=== PATIENT | female | born 1940 | race Caucasian/White ===

== ENCOUNTER → 2016-02-21 14:15 | Outpatient (CLI) | payer MEDICARE, BC ==
[2016-01-03 13:19] VITALS: BMI 33.5
[~2016-02-21 14:15] MED LIST: ASPIRIN EC81 M1 PO; BETAPACE 120 M120 MG PO; CALCIUM 500 + D1 TAB PO; CARAFATE1 G PO; CULTURELLE1 CAP PO; CYCLOBENZAPRINE10 MG PO; CYMBALTA30 MG PO; DETROL2 MG PO; FUROSEMIDE20 MG; K-DUR20 MEQ PO; KLONOPIN1 MG PO; LASIX20 MG PO; LISINOPRIL10 MG PO; LISINOPRIL5 MG PO; MAG-OX 400 MG400 MG PO; MEDROL DOSE PACK4 MG PO; PRAVASTATIN SOD10 MG PO; PROTONIX40 MG PO; REQUIP0.25 MG PO; ROPINIROLE HCL2 MG PO; TYLENOL W/CODEI1 TAB PO; UNISOM SLEEP AI25 MG PO; VITAMIN B-1000 MCG/M; ZINC30 MG PO; ZYLOPRIM100 MG PO
[2016-02-24 03:09] LABS: OVA + PARASITE EXAM Final report (())
== END | disposition home or self-care (01) ==
LOC: D.LAB 02-17 10:45
PROVIDERS: Internal Medicine Gastroenterology
DX: R19.7 Diarrhea, unspecified (principal)

== ENCOUNTER → 2017-04-01 12:33 | Outpatient (CLI) | payer MEDICARE, BC ==
[2016-01-03 13:19] VITALS: BMI 33.5
[2017-04-01 13:00] LABS: BASOPHILS 0.3 % (0-2); EOSINOPHILS 3.8 % (0-7); HEMATOCRIT 32.4 % (36.0-48.0); HEMOGLOBIN 10.6 g/dL (12-16); LYMPHOCYTES 12.8 % (15-50); MCH 28.5 pg (26.0-34.0); MCHC 32.7 g/dL (31.0-37.0); MCV 87.1 fL (80.0-100.0); MEAN PLATELET VOLUME 9.4 fL (7.4-10.4); NEUTROPHILS 66.1 % (40-80); PLATELET COUNT 224 10x3/uL (130-400); RBC 3.72 10x6/uL (4.00-5.40); RDW 13.7 % (11.5-14.5); WBC 3.1 10x3/uL (4.8-10.8)
[2017-04-01 13:08] LABS: CALCIUM 8.6 mg/dL (8.5-10.1); CARBON DIOXIDE 29.4 mmol/L (21.0-32.0); CREATININE - SERUM 0.8 mg/dL (0.6-1.3); POTASSIUM - SERUM 4.4 mmol/L (3.5-5.1)
== END | disposition home or self-care (01) ==
LOC: D.LABREF 12:33
PROVIDERS: Family Medicine
DX: E87.1 Hypo-osmolality and hyponatremia (principal); R50.9 Fever, unspecified; R51 Headache

== ENCOUNTER → 2017-04-15 11:39 | Outpatient (CLI) | payer MEDICARE, BC ==
[2016-01-03 13:19] VITALS: BMI 33.5
[2017-04-15 12:01] LABS: ANION GAP 10.9 mmol/L (8-16); CALCIUM 8.7 mg/dL (8.5-10.1); CARBON DIOXIDE 28.8 mmol/L (21.0-32.0); CREATININE - SERUM 0.9 mg/dL (0.6-1.3); POTASSIUM - SERUM 4.7 mmol/L (3.5-5.1)
== END | disposition home or self-care (01) ==
LOC: D.LABREF 11:39
PROVIDERS: Family Medicine
DX: E87.1 Hypo-osmolality and hyponatremia (principal)

== ENCOUNTER → 2017-04-29 11:02 | Outpatient (CLI) | payer MEDICARE, BC ==
[2016-01-03 13:19] VITALS: BMI 33.5
[2017-04-29 13:27] LABS: CALCIUM 9.4 mg/dL (8.5-10.1); CARBON DIOXIDE 28.9 mmol/L (21.0-32.0); CREATININE - SERUM 0.9 mg/dL (0.6-1.3); POTASSIUM - SERUM 4.9 mmol/L (3.5-5.1)
== END | disposition home or self-care (01) ==
LOC: D.LABREF 11:02
PROVIDERS: Family Medicine
DX: E87.1 Hypo-osmolality and hyponatremia (principal); E87.6 Hypokalemia

== ENCOUNTER → 2017-05-13 14:24 | Outpatient (CLI) | payer MEDICARE, BC ==
[2016-01-03 13:19] VITALS: BMI 33.5
[2017-05-13 16:15] LABS: ANION GAP 9.7 mmol/L (8-16); CALCIUM 8.5 mg/dL (8.5-10.1); CARBON DIOXIDE 29.9 mmol/L (21.0-32.0); POTASSIUM - SERUM 4.6 mmol/L (3.5-5.1)
== END | disposition home or self-care (01) ==
LOC: D.LABREF 14:24
PROVIDERS: Family Medicine
DX: E87.1 Hypo-osmolality and hyponatremia (principal)

== ENCOUNTER → 2017-05-16 10:49 | Outpatient (CLI) | payer MEDICARE, BC ==
[2016-01-03 13:19] VITALS: BMI 33.5
== END | disposition home or self-care (01) ==
LOC: D.LABREF 10:49
DX: R53.1 Weakness (principal); Z86.2 Personal history of diseases of the blood and blood-forming organs and certain disorders involving the immune mechanism; R53.83 Other fatigue

== ENCOUNTER → 2017-05-28 13:28 | Outpatient (CLI) | payer MEDICARE, BC ==
[2016-01-03 13:19] VITALS: BMI 33.5
[2017-05-28 14:17] LABS: ANION GAP 13.5 mmol/L (8-16); CALCIUM 8.7 mg/dL (8.5-10.1); CREATININE - SERUM 0.9 mg/dL (0.6-1.3); POTASSIUM - SERUM 4.5 mmol/L (3.5-5.1)
== END | disposition home or self-care (01) ==
LOC: D.LABREF 13:28
PROVIDERS: Family Medicine
DX: E87.1 Hypo-osmolality and hyponatremia (principal)

== ENCOUNTER → 2017-06-11 16:10 | Outpatient (CLI) | payer MEDICARE, BC ==
[2016-01-03 13:19] VITALS: BMI 33.5
[2017-06-11 16:45] LABS: ANION GAP 13.5 mmol/L (8-16); CALCIUM 8.9 mg/dL (8.5-10.1); CARBON DIOXIDE 25.9 mmol/L (21.0-32.0); CREATININE - SERUM 0.8 mg/dL (0.6-1.3); POTASSIUM - SERUM 4.4 mmol/L (3.5-5.1)
== END | disposition home or self-care (01) ==
LOC: D.LABREF 16:10
PROVIDERS: Family Medicine
DX: E87.1 Hypo-osmolality and hyponatremia (principal)

== ENCOUNTER → 2017-06-25 11:51 | Outpatient (CLI) | payer MEDICARE, BC ==
[2016-01-03 13:19] VITALS: BMI 33.5
[2017-06-25 12:32] LABS: ANION GAP 17.3 mmol/L (8-16); CALCIUM 9.4 mg/dL (8.5-10.1); CARBON DIOXIDE 23.2 mmol/L (21.0-32.0); CREATININE - SERUM 0.9 mg/dL (0.6-1.3); POTASSIUM - SERUM 4.5 mmol/L (3.5-5.1)
== END | disposition home or self-care (01) ==
LOC: D.LABREF 11:51
PROVIDERS: Emergency Medicine
DX: E78.1 Pure hyperglyceridemia (principal); E87.6 Hypokalemia

== ENCOUNTER → 2017-07-09 12:59 | Outpatient (CLI) | payer MEDICARE, BC ==
[2016-01-03 13:19] VITALS: BMI 33.5
[2017-07-09 14:26] LABS: ANION GAP 8.5 mmol/L (8-16); CALCIUM 8.9 mg/dL (8.5-10.1); CARBON DIOXIDE 29.6 mmol/L (21.0-32.0); CREATININE - SERUM 0.8 mg/dL (0.6-1.3); POTASSIUM - SERUM 4.1 mmol/L (3.5-5.1)
== END | disposition home or self-care (01) ==
LOC: D.LAB 12:59
PROVIDERS: Family Medicine
DX: E87.1 Hypo-osmolality and hyponatremia (principal); E87.6 Hypokalemia

== ENCOUNTER → 2017-07-23 14:40 | Outpatient (CLI) | payer MEDICARE, BC ==
[2016-01-03 13:19] VITALS: BMI 33.5
[2017-07-23 17:09] LABS: ANION GAP 11.2 mmol/L (8-16); CALCIUM 9.1 mg/dL (8.5-10.1); CARBON DIOXIDE 29.4 mmol/L (21.0-32.0); CREATININE - SERUM 0.9 mg/dL (0.6-1.3); POTASSIUM - SERUM 4.6 mmol/L (3.5-5.1)
== END | disposition home or self-care (01) ==
LOC: D.LABREF 14:40
PROVIDERS: Family Medicine
DX: E87.1 Hypo-osmolality and hyponatremia (principal)

== ENCOUNTER 2018-09-07 09:31 | Emergency (ER) | payer MEDICARE, BC ==
[~2018-09-07] VITALS: Ht 167.6 cm; Wt 101.8 kg
[2018-09-07 09:33] VITALS: Ht 167.6 cm; Wt 101.8 kg
[2018-09-07] MEDS ORDERED: KLOR-CON 1010 MEQ PO (10:30)
[2018-09-07] MEDS ORDERED: VITAMIN B-1250 MCG INJ (10:30)
[2018-09-07] MEDS ORDERED: CATAPRES0.1 MG PO (10:31)
[2018-09-07] MEDS ORDERED: LEXAPRO10 MG PO (10:31)
[2018-09-07] MEDS ORDERED: LISINOPRIL10 MG PO (10:31)
[2018-09-07] MEDS ORDERED: PROTONIX40 MG PO (10:32)
[2018-09-07] MEDS ORDERED: DETROL2 MG PO (10:32)
[2018-09-07] MEDS ORDERED: ZYLOPRIM100 MG PO (10:32)
[2018-09-07] MEDS ORDERED: BAYER CHEWABLE81 MG PO (10:32)
[2018-09-07] MEDS ORDERED: ALDACTONE25 MG PO (10:32)
[2018-09-07] MEDS ORDERED: ROPINIROLE HCL2 MG PO ×2 (10:33)
[2018-09-07] MEDS ORDERED: NEURONTIN 300300 MG PO (10:33)
[2018-09-07 10:34] LABS: BASOPHILS 0.2 % (0-2); EOSINOPHILS 1.6 % (0-7); HEMATOCRIT 35.2 % (36.0-48.0); HEMOGLOBIN 12.1 g/dL (12-16); IMMATURE GRANULOCYTES 0.2 % (0-5); LYMPHOCYTES 10.9 % (15-50); MCHC 34.4 g/dL (31.0-37.0); MCV 93.1 fL (80.0-100.0); MEAN PLATELET VOLUME 9.6 fL (7.4-10.4); MONOCYTES 5.5 % (2-11); NEUTROPHILS 81.6 % (40-80); PLATELET COUNT 200 10x3/uL (130-400); RBC 3.78 10x6/uL (4.00-5.40); WBC 6.2 10x3/uL (4.8-10.8)
[2018-09-07] MEDS ORDERED: PROBIOTIC (10:34)
[2018-09-07] MEDS ORDERED: VITAMIN D31000 UNI2 PO (10:34)
[2018-09-07] MEDS ORDERED: CALCIUM (10:34)
[2018-09-07] MEDS ORDERED: DONEPEZIL HCL10 MG (10:35)
[2018-09-07] MEDS ORDERED: KLONOPIN1 MG PO (10:35)
[2018-09-07 10:48] LABS: ALBUMIN 3.4 g/dL (3.4-5.0); ANION GAP 16.5 mmol/L (8-16); BILIRUBIN - TOTAL 0.5 mg/dL (0.2-1.3); CALCIUM 8.6 mg/dL (8.5-10.1); CARBON DIOXIDE 24.8 mmol/L (21.0-32.0); CREATININE - SERUM 0.8 mg/dL (0.6-1.3); POTASSIUM - SERUM 4.3 mmol/L (3.5-5.1); PROTEIN - SERUM 6.5 g/dL (6.4-8.2)
[2018-09-07] MEDS ORDERED: HYDROCODON-ACE1 EAC7 PO (11:25)
[2018-09-07 12:26] VITALS: BP 152/67
== END 2018-09-07 12:26 | disposition home or self-care (01) ==
LOC: D.ER 09:31
PROVIDERS: Family Medicine
DX: S43.005A Unspecified dislocation of left shoulder joint, initial encounter (principal); W01.0XXA Fall on same level from slipping, tripping and stumbling without subsequent striking against object, initial encounter; Z86.73 Personal history of transient ischemic attack (TIA), and cerebral infarction without residual deficits; I10 Essential (primary) hypertension

== ENCOUNTER → 2018-09-10 12:44 | Outpatient (CLI) | payer MEDICARE, BC ==
[2018-09-07 09:33] VITALS: BMI 36.2
[~2018-09-10 12:44] MED LIST changes: +ALDACTONE25 MG PO; +BAYER CHEWABLE81 MG PO; +CALCIUM; +CATAPRES0.1 MG PO; +DONEPEZIL HCL10 MG; +HYDROCODON-ACE1 EAC7 PO; +KLOR-CON 1010 MEQ PO; +LEXAPRO10 MG PO; +NEURONTIN 300300 MG PO; +PROBIOTIC; +VITAMIN B-1250 MCG INJ; +VITAMIN D31000 UNI2 PO
== END | disposition home or self-care (01) ==
LOC: D.MRI 12:44
PROVIDERS: ATTEND Nurse Practitioner Family
DX: S43.005A Unspecified dislocation of left shoulder joint, initial encounter (principal)

== ENCOUNTER → 2018-12-02 10:19 | Outpatient (CLI) | payer MEDICARE, BC ==
[2018-09-07 09:33] VITALS: BMI 36.2
[~2018-12-02 10:19] MED LIST changes: +PLAVIX75 MG PO; +THERMOTABS 1 GM1 GM PO; +TRAZODONE HCL150 MG PO
--- NOTE | 2018-12-05 13:29 | ST ---
PATIENT:TAMIKO SWEET MEDICAL RECORD: [id number] SEX: F LOCATION:[facility] ORDER #: ADMISSION DATE: 12/02/18 AGE OF PATIENT: 78 REFERRING PHYSICIAN: INTERPRETING PHYSICIAN: IMANI MELENDEZ MD DATE OF SERVICE: 12/02/2018 INDICATION: Angina, shortness of breath, hypertension, abnormal ECG. TECHNIQUE: She was exercised on standard Lexiscan protocol with 33 mCi of sestamibi injected at peak stress, 11 mCi used previously for rest images. FINDINGS: Gated SPECT reveals preserved ejection fraction at 68% with good wall motioning and thickening and brightening throughout all segments. SPECT imaging Cardiolite was used as myocardial perfusion agent. There is reversible ischemia anteriorly as well as laterally. This includes the basal, mid, apical anterior segments as well as apical lateral, mid lateral and basal lateral segments. The degree of reversibility is moderate anteriorly, mild laterally. The amount of myocardium involved is very large. OVERALL IMPRESSION: This is a high risk abnormal nuclear stress test. Reversible ischemia anteriorly and laterally suggestive of multivessel coronary artery disease. TRANSINT:[id number] Voice Confirmation ID: [id number] DOCUMENT ID: [id number] IMANI MELENDEZ MD at 1329 CC: OPAL CLEARY MD [id number] DICTATION DATE: 12/03/18 1644 TECHNICIAN SEMICONDUCTOR DEVELOPMENT: 12/04/18 0809 DEP CLI 12/02/18 [facility] [address] [place] [address]
== END | disposition home or self-care (01) ==
LOC: D.HCCARDIO 10:19
PROVIDERS: ATTEND Internal Medicine Interventional Cardiology
DX: I20.9 Angina pectoris, unspecified (principal)

== ENCOUNTER → 2018-12-10 13:49 | Outpatient (CLI) | payer MEDICARE, BC ==
[2018-09-07 09:33] VITALS: BMI 36.2
--- NOTE | 2018-12-16 10:20 | EC ---
PATIENT:TAMIKO SWEET DATE OF SERVICE: 12/10/18 SEX: F MEDICAL RECORD: [id number] DATE OF : 40 [facility] AGE OF PATIENT: 78 ADMISSION DATE: 12/10/18 REFERRING PHYSICIAN: INTERPRETING PHYSICIAN: IMANI BERMUDEZ MD ECHOCARDIOGRAM REPORT ECHO CHARGES 4 ECHO COMPLETE Date: 12/10/18 CLINICAL DIAGNOSIS: HTN/SOB HX LVF/MITRAL/TRICUSPID REGURG ECHOCARDIOGRAPHIC MEASUREMENTS (adult normal given) AC root (d.<3.7cm) 3.3 cm LV Septum d (<1.2 cm> 1.4 cm Valve Excursion 1.8 cm LV Septum (systole) 1.7 cm Left Atria (s.<4.0cm> 3.8 cm LVPW d(<1.2cm) 1.4 cm RV (d.<2.3cm) 2.4 cm LVPW (sytole) 2.0 cm LV diastole(<5.6CM) 5.4 cm MV E-F(>70mm/sec) cm LV systole 2.8 cm LVOT Diameter 2.0 cm MV exc.(>10mm) 1.4 cm Est.ejection fraction (50-75%) % DOPPLER: LVIT cm/sec A 108.0cm/sec E 90.0 cm/sec LA cm/sec RVSP 24 mmHg LVOT 121 cm/sec AOP1/2T m/s Asc. Ao 233 cm/sec RVOT 91 cm/sec RA cm/sec PA 112 cm/sec AV Gradient Peak 21.79mmHg AV Mean 12.03mmHg AV Area 1.7 cm MV Gradient Peak 6.23 mmHg MV Mean 2.50 mmHg MV Area cm COMMENTS: Stone Rougher: 2 RK DEUTSCH Pocket Setter Lockstitch: 1 Dr. Bermudez TAPE# PAC Pericardial Effusion N DATE OF SERVICE: FINDINGS: 1. Left ventricular chamber size is within normal limits. Left ventricular systolic function is normal. Overall ejection fraction estimated at 55%. 2. Left atrium, right atrium and right ventricular chamber sizes are within normal limits. 3. Valvular structures have normal structure and motion. 4. Doppler interrogation reveals mild mitral regurgitation, mild tricuspid regurgitation, no other valvular insufficiency or stenosis. ECHOCARDIOGRAM REPORT [id number] TAMIKO SWEET 5. No evidence of pericardial effusion or left ventricular thrombus. TRANSINT:[id number] Voice Confirmation ID: [id number] DOCUMENT ID: [id number] IMANI BERMUDEZ MD at 1020 CC: [id number] DICTATION DATE: 12/12/18 1056 ANALYST BUSINESS ANALYSIS: 12/12/18 1103 DEP CLI 12/10/18 [place] [id number] [place] [id number]
== END | disposition home or self-care (01) ==
LOC: D.HCCECHO 13:49
PROVIDERS: ATTEND Internal Medicine Interventional Cardiology
DX: I10 Essential (primary) hypertension (principal)

== ENCOUNTER 2018-12-16 09:37 | Outpatient (CLI) | payer MEDICARE, BC ==
[~2018-12-16] VITALS: Ht 167.6 cm; Wt 101.4 kg
--- NOTE | ~2018-12-16 | HEMODYNAMI ---
PATIENT:TAMIKO SWEET MEDICAL RECORD: [id number] : 40 LOCATION:[facility] ADMISSION DATE: 12/16/18 Generatedon:12/16/201813:12 Patient name: TAMIKO SWEET Patient #: [id number] SSN: : 1940 Date of study: 12/16/2018 Page: Of Hemodynamic Procedure Report Patient Data Patient Demographics Procedure consent was obtained First Name: TAMIKO Gender: Female Last Name: KEE : 1940 Middle Initial: A Age: 78 year(s) Patient #: [id number] Race: Additional ID: [id number] Contact details Address: [facility] [address] State: [place] City: [place] Zip code: [address] Past Medical History Performed procedures and imaging results Date Procedure Procedure Results Comments Stress testing Positive->Intermediate with SPECT MPI risk Allergies Allergen Reaction Date Comments Reported Other allergy 12/16/2018 AMOXICILLIN, CIPRO, KEFZOL, LEVAQUIN, SOTALOL, SULFA, TRAMADOL, POLLEN Admission Admission Data Admission Date: 12/16/2018 Admission Time: 9:37 Arrival Date: 12/16/2018 Arrival Time: 0:00 Height (in.): 66 BSA: 2.12 (m2) Height (cm.): 167.64 BMI: 37.12 (kg/m2) Weight (lbs.): 230 Weight (kg.): 104.33 Lab Results Lab Result Date: 12/16/2018 Lab Result Time: 0:00 Biochemistry Name Units Result Min Max BUN mg/dl 27 --(----)-* 7 18 Creatinine mg/dl 0.8 --(-*--)-- 0.6 1.3 eGFR ml/min 73.88197 *-(----)-- 90 120 NONAFRICAN CBC Name Units Result Min Max Hematocrit % 39.1 -*(----)-- 42 54 Hemoglobin g/dl 12.9 -*(----)-- 13.5 17.5 Procedure Procedure Types Cath Procedure Diagnostic Procedure [facility] w/Coronaries FFR/IVUS FFR Initial FFR Additional Sedation Charges Moderate Sedation up to 15 minutes PCI Procedure Coronary Stent Coronary Stent Initial Coronary Stent Additional Procedure Description Procedure Date Procedure Date: 12/16/2018 Procedure Start Time: 12:48 Procedure End Time: 13:08 Procedure Staff Name Function Stone Bermudez MD Performing Physician Andressa Garza RT Monitor Betsy Caceres RT Monitor Rose Rubin RT Scrub Malcolm Puente RN Nurse Procedure Data Cath Procedure Fluoroscopy Diagnostic fluoroscopy Total fluoroscopy Time: 3.9 time: 3.9 min min Diagnostic fluoroscopy Total fluoroscopy dose: 377 dose: 377 mGy mGy Contrast Material Contrast Material Type Amount (ml) Isovue 300 101 Entry Location Entry Primary Successful Side Size Upsize Upsize Entry Closure Hodge ccessful Closure Location (Fr) 1 (Fr) 2 (Fr) Remarks Device Remarks Radial Right 6 Fr Mechanical artery Short Compression Estimated blood loss: 10 ml Diagnostic catheters Device Type Used For End Catheter Placement DIAGNOSTIC [place] 110cm 5 Procedure Fr catheter ([id number]) Procedure Complications No complications Procedure Medications Medication Administration Route Dosage 0.9% NaCl I.V. 100 ml/hr Oxygen etCO2 Nasal cannula 2 l/min Heparin Flush Bag added to field 2 bags (1000units/500ml NS) Lidocaine 2% added to field 20 Radial Cocktail added to field 1 syringe (Verapamil 2mg/Nitro 400mcg/Heparin 1500units) Versed I.V. 2 mg Fentanyl I.V. 100 mcg Radial Cocktail I.A. 1 syringe (Verapamil 2mg/Nitro 400mcg/Heparin 1500units) Heparin Bolus I.V. 4000 units Integrilin (Bolus I.V. 9.5 ml 2mg/ml) Integrilin (Bolus wasted 0.5 ml 2mg/ml) Plavix P.O. 600 mg Hemodynamics Rest BSA: 2.12 (m2) HGB: 12.9 (g/dl) O2 Consumption: Estimated: 184.99 (ml/min) O2 Co nsumption indexed: Estimated:87.26 (ml/min/m) Heart Rate: 62 (bpm) Snapshots Pre Cath Intra NCS Post Cath Vital Signs Time Heart Resp SPO2 etCO2 NIBP (mmHg) Rhythm Pain Sedation Rate (ipm) (%) (mmHg) Status Level (bpm) 12:44:54 58 15 100 0 172/80(142) NSR 0 (11) 10(A) , No pain 12:49:43 58 33 100 30.8 182/81(145) NSR 0 (11) 10(A) , No pain 12:54:24 61 32 97 18.8 147/73(121) NSR 0 (11) 10(A) , No pain 12:59:04 58 50 97 23.3 158/68(118) NSR 0 (11) 9(A) , No pain 13:03:51 62 16 98 25.5 159/67(120) NSR 0 (11) 10(A) , No pain 13:08:36 61 14 98 27 166/74(128) NSR 0 (11) 10(A) , No pain Medications Time Medication Route Dose Verified Delivered Reason Not es Effectiveness by by 12:46:19 0.9% NaCl I.V. 100 Malcolm Malcolm Per physician ml/hr Cindi Puente RN RN 12:46:29 Oxygen etCO2 2 l/min Malcolm Malcolm for low 02 sats Nasal Lorigan Lorandrzej cannula RN RN 12:46:40 Heparin Flush added 2 bags Malcolm Malcolm used for Bag to Lorandrzej Puente procedure (1000units/500ml [facility] RN RN NS) 12:46:49 Lidocaine 2% added 20ml Malcolm Malcolm for local to vial Lorigan Ivettigan anesthetic field RN RN 12:46:58 Radial Cocktail added 1 Malcolm Malcolm used for (Verapamil to syringe Lorigan Lorigan procedure 2mg/Nitro field RN RN 400mcg/Heparin 1500units) 12:48:22 Versed I.V. 2 mg Malcolm Malclom for sedation Cindi Puente RN RN 12:48:31 Fentanyl I.V. 100 mcg Malcolm Malcolm for sedation Cindi Puente RN RN 12:50:40 Radial Cocktail I.A. 1 Malcolm Stone for (Verapamil syringe Cindi Tauth MD vasodilation 2mg/Nitro RN 400mcg/Heparin 1500units) 13:00:01 Heparin Bolus I.V. 4000 Malcolm Malcolm for units Cindi Puente anticoagulation RN RN 13:00:16 Integrilin I.V. 9.5 ml Malcolm Malcolm for (Bolus 2mg/ml) Lorandrzej Puente antiplatelet RN RN therapy 13:00:25 Integrilin wasted 0.5 ml Malcolm Malcolm to sharp's (Bolus 2mg/ml) Cindi Puente RN RN 13:06:04 Plavix P.O. 600 mg Malcolm Malcolm for Cindi Puente antiplatelet RN RN therapy Procedure Log Time Note 12:10:58 Informed consent obtained and on chart 12:11:22 Procedure Status Elective Heart Cath (OP). 12::25 Malcolm Puente RN sent for patient. Start room use. 12::26 Time tracking: Regular hours (M-F 7:00 - 5:00) 12:11:32 Plan of Care:Hemodynamics will remain stable., Cardiac rhythm will remain stable., Comfort level will be maintained., Respiratory function will remain adequate., Patient/ family verbilizes understanding of procedure., Procedure tolerated without complication., Recovers from procedure without complications.. 12:18:25 H&P Date Dictated: 11/26/2018 Within 30 days and on chart., H&P Addendum completed by physician on day of procedure. (MUST COMPLETE FOR ALL OUTPATIENTS). 12:19:08 Patient allergic to Other allergyAMOXICILLIN, CIPRO, KEFZOL, LEVAQUIN, SOTALOL, SULFA, TRAMADOL, POLLEN 12:20:21 Lab Result : BUN 27 mg/dl 12:20:21 Lab Result : Hematocrit 39.1 % 12:20:21 Lab Result : eGFR NONAFRICAN 73.36751 ml/min 12:20:21 Lab Result : Creatinine 0.8 mg/dl 12:20:21 Lab Result : Hemoglobin 12.9 g/dl 12:24:40 Patient received from Pre/Post Procedure Room to CCL 1 Alert and oriented. Tansferred to table in Supine position. 12:24:41 Warm blankets applied, and natalia hugger turned on for patient comfort. 12::41 Correct patient and procedure confirmed by team. 12:24:42 ECG and BP/O2 sat monitors applied to patient. 12:27:15 Rhythm: sinus rhythm 12::17 Full Disclosure recording started 12::17 Pre-op teaching completed and patient verbalized understanding. 12::18 Pre-procedure instructions explained to patient. 12:27:20 Family in patients room. 12::25 Vital chart was started 12:27:34 Is patient on blood thinner?No 12:27:37 Patient diabetic? No. 12:27:40 Patient not . Patient is over age 55. 12:27:46 Previous problem with sedation/anesthesia? No ? 12:27:48 Snore? Yes 12:27:48 Sleep apnea? No 12:27:49 Deviated septum? No 12:27:50 Opens mouth fully? Yes 12:27:52 Sticks out tongue? Yes 12:27:54 Airway obstruction? No ? 12:27:56 Dentures? No ? 12:27:58 Modified Zbigniew's test Ulnar < 7 seconds 12:28:01 Patient pain scale 0/10 ?. 12:28:09 Lab results completed and on chart. 12:28:39 Stress Test: yes; abnormal ANTERIORLY AND LATERALLY 12:28:41 Risk of Mortality: .1 12:28:44 Risk of blood transfusion: 1.4 12:28:49 Risk of ANGI: 1.6 12:28:58 Right Radial & Right Groin area was prepped with chlora-prep and draped in sterile fashion 12:30:33 Alarms reviewed by R. N. 12:30:33 Sharps counted by scrub and verified by R.N. 12:30:36 Use device set Radial Dx or PCI 12:30:37 ACIST Syringe (62121) opened to sterile field. 12:30:39 Bag Decanter (2002S) opened to sterile field. 12:30:40 ACIST Hand Control (72733) opened to sterile field. 12:30:40 ACIST Manifold (92578) opened to sterile field. 12:30:40 Tegaderm 4 x 4 (1626W) opened to sterile field. 12:30:42 Medline Cath Pack ([id number]) opened to sterile field. 12:30:43 EMERALD Guide Wire (502-061) opened to sterile field. 12:30:44 SHEATH 6FR RAIN (8238700) opened to sterile field. 12:30:46 MBrace Wrist Support ([id number]) opened to sterile field. 12:32:08 Patient Height : 66 inches 12:32:12 Patient Weight : 230 lbs 12:32:15 Arrival Date: 12/16/2018 12:00:00 AM 12:32:53 Baseline sample Acquired. 12:39:42 IV left antecubital D/C'd due to CLOT IN HUB 12:40:12 IV started by Malcolm Puente RN inright antecubital with a 20 gauge IV catheter with 0.9% NaCl at KVO. 12:45:12 --------ALL STOP TIME OUT------ 12:45:12 Final Timeout: patient, procedure, and site verified with staff and physician. All members of the team are in agreement. 12:45:14 Right Radial & Right Groin site verified by team. 12:45:17 Fire Safety Assessment: A--An alcohol-based skin anteseptic being used preoperatively., C--Open oxygen or nitrous oxide is being used., D--An ESU, laser, or fiber-optic light is being used. 12:45:20 Physical assessment completed. ASA score P 2 - A patient with mild systemic disease as per Stone Bermudez MD. 12:45:24 2) 60-89 Mildly reduced kidney function, and other findings (as for stage 1) point to kidney disease. 12:45:27 Maximum allowable contrast dose (3.7 X eGFR X 0.75)203 ml. 12:45:31 Sedation plan: IV Moderate Sedation Medication:Versed, Fentanyl 12:46:19 0.9% NaCl 100 ml/hr I.V. was administered by Malcolm Puente RN; Per physician; Verbal order read back and verified. 12:46:29 Oxygen 2 l/min etCO2 Nasal cannula was administered by Malcolm Puente RN; for low 02 sats; Verbal order read back and verified. 12:46:40 Heparin Flush Bag (1000units/500ml NS) 2 bags added to field was administered by Malcolm Puente RN; used for procedure; Verbal order read back and verified. 12:46:49 Lidocaine 2% 20ml vial added to field was administered by Malcolm Puente RN; for local anesthetic; Verbal order read back and verified. 12:46:58 Radial Cocktail (Verapamil 2mg/Nitro 400mcg/Heparin 1500units) 1 syringe added to field was administered by Malcolm Puente RN; used for procedure; Verbal order read back and verified. 12:48:22 Versed 2 mg I.V. was administered by Malcolm Puente RN; for sedation; Verbal order read back and verified. 12:48:31 Fentanyl 100 mcg I.V. was administered by Malcolm Puente RN; for sedation; Verbal order read back and verified. 12:48:47 Procedure started. 12:48:55 Local anesthetic to right radial artery with Lidocaine 2% by Stone Bermudez MD.INITIAL ACCESS ONLY 12:49:04 Zero performed for pressure channel P1 12:49:38 A 6 Fr Short sheath was inserted into the Right Radial artery 12:49:57 A DIAGNOSTIC [place] 110cm 5 Fr catheter ([id number]) was advanced over the wire and used for Procedure. 12:50:33 LV gram done using SHEETS 12:50:40 Radial Cocktail (Verapamil 2mg/Nitro 400mcg/Heparin 1500units) 1 syringe I.A. was administered by Stone Bermudez MD; for vasodilation; Verbal order read back and verified. 12:51:40 EF : 55 % 12:51:46 Injector settings: Ml/sec: 5, Volume: 15, 12:51:53 LCA angiography performed. 12:52:47 RCA angiography performed. 12:52:54 ACCDominant side:Right 12:53:26 Catheter exchanged over wire. 12:53:59 INFLATOR Merit BasixCompak (GC3982) opened to sterile field. 12:54:01 [place] Verrata Plus pressure wire (07044A) opened to sterile field. 12:54:02 GUIDE 6FR XBLAD 3.5 catheter ([id number]) opened to sterile field. 12:54:27 6 Fr XBLAD3.5 guide catheter was inserted over the wire 12:54:58 FFR/IFR wire advanced. 12:55:48 Wire advanced across lesion. 12:56:29 pLAD lesion measured at 0.85 with IFR 12:57:06 WIRE REDIRECTED TO DIAG 12:57:18 Diag1 lesion measured at 0.86 with IFR 12:57:33 CHOICE PT Extra Support 182cm wire ([id number]) opened to sterile field. 12:57:58 CHOICE PT wire advanced. 12:58:15 CHOICE ADVANCED ACROSS LAD 13:00:01 Heparin Bolus 4000 units I.V. was administered by Malcolm Puente RN; for anticoagulation; Verbal order read back and verified. 13:00:07 Place stent Inflation Number: 1 A ASHLEE RX 2.75 x 08 stent ([id number]) was prepped and advanced across the 1st Diag . The stent was deployed at 15 SIMÓN for 0:10 (min:sec) . 13:00:16 Integrilin (Bolus 2mg/ml) 9.5 ml I.V. was administered by Malcolm Puente RN; for antiplatelet therapy; Verbal order read back and verified. 13:00:22 Stent catheter was removed intact over wire. 13:00:25 Integrilin (Bolus 2mg/ml) 0.5 ml wasted was administered by Malcolm Puente RN; to sharp's; Verbal order read back and verified. 13:00:35 WIRE REMOVED FROM DIAG. 13:01:57 Place stent Inflation Number: 1 A ASHLEE RX 3.0 x 12 stent ([id number]) was prepped and advanced across the Mid LAD . The stent was deployed at 17 SIMÓN for 0:00 (min:sec) . 13:02:03 Stent catheter was removed intact over wire. 13:02:05 Wire removed. 13:02:06 Guide catheter removed. 13:02:32 Pre PCI Site: [place] Diag1 has 75% stenosis. 13:02:42 Pre PCI Site: [place] mLAD has 75% stenosis. 13:02:58 ZEPHYR REGULAR TR BAND (658144) opened to sterile field. 13:03:11 ACT drawn and resulted at 321 seconds. (normal therapeutic range 180-240 seconds). 13:03:25 Sheath removed intact; hemostasis achieved with Mechanical Compression to the Right Radial artery. 13:03:28 Procedure ended.(Physican Out) 13:03:38 Contrast amount:Isovue 300 101ml. 13:03:53 Maximum allowable dose exceeded? No. 13:04:07 Fluoroscopy time 03.90 minutes. 13:04:19 Flurop Dose total: 377 13:04:19 Fluoroscopy dose: 377 mGy 13:04:29 Dose Area Product 60701 mGy/cm. 13:04:45 Sharps counted by scrub and verified by R.N. 13:04:51 [place] band inflated with 10cc of air. 13:04:55 Insertion/operative site no bleeding no hematoma. 13:05:05 Post right radial artery:stable 13:05:09 Post Procedure Pulses reassessed and unchanged 13:05:22 Post-procedure physical assessment completed. ASA score P 2 - A patient with mild systemic disease as per Stone Bermudez MD. 13:05:29 Post procedure rhythm: unchanged. 13:05:34 Estimated blood loss: 10 ml 13:05:36 Post procedure instruction explained to patient.Patient verbalizes understanding. 13:05:37 Patient needs reinforcement of post procedure teaching. 13:06:04 Plavix 600 mg P.O. was administered by Malcolm Puente RN; for antiplatelet therapy; Verbal order read back and verified. 13:06:32 Procedure type changed to Cath procedure, Diagnostic procedure, LHC, [facility] w/Coronaries, FFR/IVUS, FFR Initial, FFR Additional, Sedation Charges, Moderate Sedation up to 15 minutes, PCI procedure, Coronary Stent, Coronary Stent Initial, Coronary Stent Additional 13:07:25 Procedure and supply charges have been captured, reviewed, submitted and are correct. 13:08:30 Procedure Complication : No complications 13:08:34 Vital chart was stopped 13:08:37 [facility] Findings: MVD- PCI performed (see procedure note) 13:08:42 Operative report dictated upon procedure completion. 13:08:43 See physician's report for complete and final results. 13:08:49 Report given to Pre/Post Procedure Room. 13:08:54 Patient transfered to Pre/Post Procedure Room with Stretcher. 13:08:58 Procedure ended. 13:08:58 Full Disclosure recording stopped 13:09:11 ACC-PCI Only Patient was given prescriptions, or instructed by Stone Bermudez MD to start/continue the following medications upon discharge: Plavix 13:09:27 ACC Patient presents with Stable Angina CCS Anginal Class 2--Slight limitation of ordinary activity. 13:10:03 ACCPatient has been prescribed/administered the following anti-anginal medication within the last 2 weeks: None 13:10:16 End room use (Document Last) Intervention Summary Intervention Notes Time ActionType Lesion and Equipment Used Action# Pressure Duration Attributes 13:00:07 Place stent 1st Diag ASHLEE RX 2.75 x 1 15 00:10 08 stent ([id number]) 13:01:57 Place stent Mid LAD ASHLEE RX 3.0 x 1 17 00:00 12 stent ([id number]) Device Usage Item Name Manufacture Quantity Catalog Number Hospital Part Current Minimal Lot# / Charge Number Stock Stock Serial# Code ACIST Syringe Acist 1 41023 633600 396107 683839 20 (12088) Medical Systems Inc Bag Decanter Microtek 1 277643 28616 768112 5 (2001S) Medical Inc. ACIST Hand Acist 1 16541 450777 698197 093221 5 Control Medical (21462) Systems Inc ACIST Manifold Acist 1 90381 968036 540864 975757 5 (60436) Medical Systems Inc Tegaderm 4 x 4 3M 1 1626W 044145 505711 427727 5 (1626W) Medline Cath Medline 1 [id number] 860644 81345 906211 5 Pack ([id number]) EMERALD Guide Cardinal 1 502-455 800818 501086 171507 5 Wire (502-455) Health SHEATH 6FR Cardinal 1 4635491 215431 0583124 261027 5 RAIN (9945858) Health MBrace Wrist Advanced 1 140-0250-00 209314 17133 737096 5 Support Vascular ([id number]) Dynamics DIAGNOSTIC Terumo 1 40-5013 381333 174803 928833 5 [place] 110cm 5 Fr catheter (326944) INFLATOR Merit Merit 1 [id number] 766943 187319 697083 15 Xcell Medical (CT8924) [place] 1 82636C 691656 838475109 735970 5 Verrata Plus pressure wire (31177K) GUIDE 6FR Cardinal 1 [id number] 257460 845561 370633 10 XBLAD 3.5 Health catheter ([id number]) CHOICE PT [place] 1 [id number] 543657 556918 221312 5 Extra Support Scientific 182cm wire (1304918A0) ASHLEE RX 2.75 x Medtronic 1 [id number] 407910 6649344 188199 5 [id number] 08 stent ([id number]) ASHLEE RX 3.0 x Medtronic 1 [id number] 770403 5880014 311532 5 [id number] 12 stent ([id number]) ZEPHYR REGULAR Cardinal 1 095807 564850 7514624 394397 5 TR Parametric (536506) Signature Audit [place] Stage Time Signature Unsigned Intra-Procedure 12/16/2018 Betsy 1:11:46 PM Morris RT(R) (CV) Intra-Procedure 12/16/2018 Malcolm 1:12:17 PM Cindi BARKLEY Intra-Procedure 12/16/2018 Stone Bermudez 1:12:45 PM [facility] [address] [place] [address]
[~2018-12-16 09:37] MED LIST changes: -PLAVIX75 MG PO; -THERMOTABS 1 GM1 GM PO; -TRAZODONE HCL150 MG PO
[2018-12-16] MEDS ORDERED: THERMOTABS 1 GM1 GM PO (10:01)
[2018-12-16] MEDS ORDERED: TRAZODONE HCL150 MG PO (10:01)
[2018-12-16 10:23] VITALS: BP 170/62; Ht 167.6 cm; Wt 101.4 kg
[2018-12-16 10:36] LABS: BASOPHILS 0.2 % (0-2); EOSINOPHILS 2.2 % (0-7); HEMATOCRIT 39.1 % (36.0-48.0); HEMOGLOBIN 12.9 g/dL (12-16); IMMATURE GRANULOCYTES 0.2 % (0-5); LYMPHOCYTES 19.3 % (15-50); MCH 31.7 pg (26.0-34.0); MCV 96.1 fL (80.0-100.0); MEAN PLATELET VOLUME 9.4 fL (7.4-10.4); MONOCYTES 9.4 % (2-11); NEUTROPHILS 68.7 % (40-80); PLATELET COUNT 225 10x3/uL (130-400); RBC 4.07 10x6/uL (4.00-5.40); RDW 13.1 % (11.5-14.5); WBC 4.2 10x3/uL (4.8-10.8)
[2018-12-16 10:48] LABS: ANION GAP 5.7 mmol/L (8-16); CALCIUM 9.3 mg/dL (8.5-10.1); CARBON DIOXIDE 32.9 mmol/L (21.0-32.0); CHOL - HDL RATIO 1.9 ratio (2.3-4.1); CREATININE - SERUM 0.8 mg/dL (0.6-1.3); LDL-HDL RATIO 0.8 ratio (1.5-3.5); POTASSIUM - SERUM 4.6 mmol/L (3.5-5.1)
--- NOTE | 2018-12-16 13:25 | NUR ---
PT ARRIVED BY STRETCHER. PLACED ON MONITORS. ASSESSMENT COMPLETED. FAMILY AT BEDSIDE.
[2018-12-16] MEDS ORDERED: PLAVIX75 MG PO (13:28)
--- NOTE | 2018-12-16 13:40 | NUR ---
PT ON BEDPAN. VOIDED APPROX 400cc OF CLEAR YELLOW URINE. PABLO-CARE GIVEN. RIGHT WRIST Z BAND IN PLACE. NO BLEEDING/HEMATOMA NOTED. CALL LIGHT WITHIN REACH. VSS.
--- NOTE | 2018-12-16 14:10 | NUR ---
PT SITTING UP IN BED. EATING SANDWICH. DENIES NAUSE/PAIN AT THIS TIME. RIGHT WRIST Z BAND IN PLACE. NO BLEEDING/HEMATOMA NOTED. CALL LIGHT WITHIN REACH. VSS. NO NEEDS AT THIS TIME.
--- NOTE | 2018-12-16 14:40 | NUR ---
RIGHT WRIST Z BAND IN PLACE. NO BLEEDING/HEMATOMA NOTED. CALL LIGHT WITHIN REACH. VSS. PT RESTING COMFORTABLY.
--- NOTE | 2018-12-16 15:10 | NUR ---
PT RESTING COMFORTABLY. RIGHT WRIST Z BAND IN PLACE. NO BLEEDING/HEMATOMA NOTED. CALL LIGHT WITHIN REACH. VSS.
--- NOTE | 2018-12-16 15:59 | NUR ---
2cc OF AIR REMOVED FROM Z BAND. TOLERATED WELL. NO BLEEDING/HEMATOMA NOTED. CALL LIGHT WITHIN REACH. VSS. PT RESTING COMFORTABLY.
--- NOTE | 2018-12-16 16:15 | NUR ---
3cc OF AIR REMOVED FROM Z BAND. NO BLEEDING/HEMATOMA NOTED. PT ON BEDPAN. VOIDED WITHOUT DIFFICULTY. PABLO-CARE GIVEN. CALL LIGHT WITHIN REACH. VSS.
--- NOTE | 2018-12-16 16:45 | NUR ---
3cc OF AIR REMOVED FROM Z BAND. TOLERATING WELL. VSS. NO BLEEDING/HEMATOMA NOTED.
--- NOTE | 2018-12-16 17:00 | NUR ---
PIV D/C'D WITH CATH TIP INTACT. TOLERATED WELL. PT ASSISTED IN SITTING UP AND GETTING DRESSED. WAITING ON PT'S DAUGHTER'S ARRIVAL TO GO OVER DISCHARGE INSTRUCTIONS.
--- NOTE | 2018-12-16 17:30 | NUR ---
RIGHT WRIST Z BAND REMOVED AND DRESSING APPLIED. NO BLEEDING/HEMATOMA NOTED.
--- NOTE | 2018-12-16 17:45 | NUR ---
PT'S DAUGHTER AT BEDSIDE. DISCUSSED DISCHARGE INSTRUCTIONS WITH PT AND PT'S DAUGHTER. THEY VOICED UNDERSTANDING. RIGHT WRIST DRESSING C/D/I. NO S/S OF HEMATOMA NOTED. RIGHT WRIST BRACE IN PLACE.
--- NOTE | 2018-12-16 17:50 | NUR ---
PT TAKEN OUT TO VEHICLE BY WHEELCHAIR. NO S/S OF DISTRESS NOTED. ALL BELONGINGS AND PAPERWORK IN HAND. RIGHT WRIST DRESSING C/D/I. NO S/S OF HEMATOMA NOTED.
--- NOTE | 2018-12-17 09:45 | OP ---
PATIENT NAME: TAMIKO SWEET MEDICAL RECORD: [id number] :40 LOCATION:[facility] ADMISSION DATE: SURGEON: IMANI MELENDEZ MD DATE OF OPERATION: 12/16/2018 DATE OF SERVICE: 12/16/2018 PROCEDURES: 1. PTCA stent LAD. 2. PTCA stent LAD diagonal. 3. IFR LAD. 4. IFR LAD diagonal. 5. Left heart catheterization. 6. Selective coronary angiography. 7. Left ventriculogram. INDICATION: Angina, coronary artery disease, abnormal nuclear stress test. DESCRIPTION OF PROCEDURE: After informed consent was obtained and after a detailed description of the risks, benefits as well as alternative therapies, the patient elected to proceed with angiogram and angioplasty. The right radial area was prepped and draped in normal sterile fashion. Right radial artery was cannulated via modified Seldinger technique with placement of 6-Bhut[place] sheath. All catheters exchanged through this sheath. FINDINGS: The left ventriculogram was performed in the standard 30-degree SHEETS view reveals good cardiac wall motion, ejection fraction in the 60% range. SELECTIVE CORONARY ANGIOGRAPHY: 1. Left main is with no significant angiographic disease. 2. Left anterior descending and diagonal have approximately 70% stenosis. This correlates with the perfusion defect on nuclear stress testing. IFR was abnormal and the LAD is 0.85, it was abnormal and the LAD diagonal was 0.86. 3. Left circumflex has mild irregularities, but no flow-limiting stenosis. 4. Right coronary has mild irregularities, but no flow-limiting stenosis. PTCA STENT OF THE LAD AND DIAGONAL: The diagonal was addressed with a 2.75 x 8 and the LAD with a 3.0 x 12 both Cuco stents. Result was 0% residual stenosis. OVERALL IMPRESSION: Successful percutaneous transluminal coronary angioplasty stent of the left anterior descending and diagonal, both going from 70% initial stenosis with abnormal IFR to 0% residual stenosis. TRANSINT:[id number] Voice Confirmation ID: [id number] DOCUMENT ID: [id number] IMANI MELENDEZ MD at 0945 CC: [id number] DICTATION DATE: 12/16/18 1307 ICING AND GLAZE MAKER: 12/16/18 1319 DEP CLI 12/16/18 [place] [id number]
== END 2018-12-16 17:50 | disposition home or self-care (01) ==
LOC: D.CATH 09:37
PROVIDERS: ATTEND Internal Medicine Interventional Cardiology
DX: I25.119 Atherosclerotic heart disease of native coronary artery with unspecified angina pectoris (principal); R94.30 Abnormal result of cardiovascular function study, unspecified; R06.02 Shortness of breath
CPT/HCPCS: C9600; C9601; 93458; 93572; 93571

== ENCOUNTER 2019-06-13 08:04 | Emergency (ER) | payer MEDICARE, BC ==
[~2019-06-13] VITALS: Ht 167.6 cm; Wt 103.4 kg
[~2019-06-13 08:04] MED LIST changes: +PLAVIX75 MG PO; +THERMOTABS 1 GM1 GM PO; +TRAZODONE HCL150 MG PO
[2019-06-13 08:12] VITALS: Ht 167.6 cm; Wt 103.4 kg
[2019-06-13 09:09] VITALS: BP 171/80
== END 2019-06-13 11:28 | disposition home or self-care (01) ==
LOC: D.ER 08:04
DX: S00.83XA Contusion of other part of head, initial encounter (principal); W19.XXXA Unspecified fall, initial encounter; Y93.9 Activity, unspecified; Y92.9 Unspecified place or not applicable; I10 Essential (primary) hypertension; I48.91 Unspecified atrial fibrillation; R01.1 Cardiac murmur, unspecified; K21.9 Gastro-esophageal reflux disease without esophagitis